=== PATIENT | female | born 1985 | race Caucasian/White ===

== ENCOUNTER 2019-11-29 10:41 | Outpatient (RCR) | payer BC, SELFPAY ==
[2019-11-29] MEDS: RHO(D) IMMUNE GLOBULIN 300 MCG SYRINGE IM (15:25)
== END 2020-02-25 07:28 | disposition home or self-care (01) ==
LOC: ANHLAB 10:41
PROVIDERS: Visit Provider Obstetrics & Gynecology
DX: Z29.13 Encounter for prophylactic Rho(D) immune globulin (principal); O36.0990 Maternal care for other rhesus isoimmunization, unspecified trimester, not applicable or unspecified; Z3A.00 Weeks of gestation of pregnancy not specified
CPT/HCPCS: 36415; 86900; 86901; 90384; 96372; J2790

== ENCOUNTER 2020-02-16 13:42 | Outpatient (RCR) | payer BC, SELFPAY ==
--- NOTE | ~2020-02-16 | US_ITS ---
EXAMINATION: US OB follow up w [facility] DATE: 02/16/2020 15:01 INDICATION: Postdates. TECHNIQUE: Real-time pelvic ultrasound was performed. COMPARISON: None. FINDINGS: There is a single living fetus in vertex presentation. The placenta is anterior. heart rate is 154 beats per minute (bpm). The amniotic fluid index is 10.3 cm, which is normal. The following biometric data were obtained: Biparietal diameter (BPD): 9.4 cm; head circumference (HC): 33.3 cm; abdominal circumference (AC): 35 .0 cm; femur length (FL): 7.3 cm. These measurements are concordant. Estimated weight is 3497 g +/- 525 g, which correlates with 30th percentile when 02/11/20 is use d as estimated date of delivery. As single measurements, these parameters are each equal to the following estimated gestational ages: BPD: 38 weeks 1 days. HC: 38 weeks 1 days. AC: 39 weeks 0 days. FL: 37 weeks 4 days. estimated gestational age based solely on measurements from this exam is 38 weeks 2 days +/- 2 weeks 5 days. Biophysical profile performed by the technologist: breathing (30 sec sustained breathing in 30 minutes): 2 out of 2 movement (3 gross body movements in 30 minutes): 2 out of 2 tone (one episode of umipbyc-svatwpfsb-olcseco limb movement): 2 out of 2 Amniotic fluid pocket (2 cm): 2 out of 2 Total score: 8 out of 8 IMPRESSION: 1. Single living fetus in vertex presentation. 2. Estimated weight is 3497 g +/- 525 g, which correlates with 30th percentile when 02/11/20 is used as estimated date of delivery. 3. Biophysical profile 8 out of 8. Reviewed, dictated and finalized at location A. IMPRESSION: 1. Single living fetus in vertex presentation. 2. Estimated weight is 3497 g +/- 525 g, which correlates with 30th perc entile when 6/12/20 is used as estimated date of delivery. 3. Biophysical profile 8 out of 8.
[2020-02-16 15:15] VITALS: BP 130/81; PULSE 86
== END 2020-02-25 07:28 | disposition home or self-care (01) ==
LOC: ANHOBOP 13:42
PROVIDERS: Visit Provider Obstetrics & Gynecology
DX: O48.0 Post-term pregnancy (principal); Z3A.40 40 weeks gestation of pregnancy
CPT/HCPCS: 59025; 76816; 76819

== ENCOUNTER 2020-02-16 21:40 | Inpatient (IN) | payer BC, SELFPAY ==
[2020-02-16 22:16] VITALS: BP 118/73; PULSE 108
[2020-02-16 22:20] VITALS: BMI 35.5
--- NOTE | 2020-02-16 22:21 | LDADM ---
This patient, Candis Sue, was admitted to Labor/Delivery/Recovery 107 on 02/16/20 at 21:40. Plans for labor, pain management and were discussed with patient. Patient/family oriented to hospital policies and general routines including ID bracelet, bed and alarms, visiting hours, pain management, procedures, bathroom and other care routines, personal items, smoking policy, room service/diet and guest tray routines, security routines, and visiting hours. Patient/Family are encouraged to report perceived risks to care and to ask questions if they do not understand what they are told or what they should do. See OBIX for further documentation.
[2020-02-16 22:30] VITALS: TEMP 36.6
[2020-02-16 22:31] VITALS: BP 138/84; PULSE 90
[2020-02-16 22:39] LABS: Basophils Absolute Auto 0.1 K/mm3 (0.0-0.1); Basophils Percent Auto 0.5 % (0.2-1.2); Eosinophils Percent Auto 0.3 % (0-4.4); Hematocrit 38.2 % (37.0-47.0); Hemoglobin 12.9 g/dL (12.0-15.0); Immature Granulocyte Absolute 0.19 K/mm3 (0.00-0.031); Immature Platelet Fraction Pct 12.8 % (0.9-11.2); Lymphocytes Absolute Auto 1.83 K/mm3 (0.9-3.2); Lymphocytes Percent Auto 19.2 % (18.3-44.2); Mean Corpuscular HGB Conc 33.8 g/dl (32-36); Mean Corpuscular Hemoglobin 30.9 pg (26-34); Mean Corpuscular Volume 91.6 fl (80-100); Mean Platelet Volume 13.2 fl (7.4-10.4); Monocytes Absolute Auto 0.6 K/mm3 (0.1-0.6); Monocytes Percent Auto 6.3 % (2.6-8.5); Neutrophils Absolute Auto 6.8 K/mm3 (1.3-6.7); Neutrophils Percent Auto 71.7 % (45.5-73.1); Nucleated Red Blood Cells Perc 0.3 % (0.0-0.2); Platelet Count Result 131 k/mm3 (150-375); Red Blood Count 4.17 M/mm3 (4.2-5.4); Red Cell Distribution Width 15.2 % (11.5-14.5); White Blood Count 9.5 K/mm3 (4.5-10.0)
[2020-02-16 22:45] LABS: Alanine Aminotransferase 23 U/L (4-35); Albumin Level 3.6 g/dL (3.5-5.1); Alkaline Phosphatase 315 U/L (38-126); Aspartate Amino Transferase 32 U/L (14-36); Bilirubin,Total 0.2 mg/dL (0.2-1.3); Blood Urea Nitrogen 12 mg/dL (7-17); Calcium 8.8 mg/dL (8.4-10.2); Carbon Dioxide 19 mmol/L (22-30); Chloride 106 mmol/L (98-107); Estimated CRCL calculation 162 ml/min; Estimated Glomerular Filt Rate > 60; Glucose 144 mg/dL (65-105); Potassium 3.7 mmol/L (3.4-5.0); Sodium 133 mmol/L (137-145)
[2020-02-16 22:55] LABS: Uric Acid 5.6 mg/dL (2.5-7.5)
[2020-02-17] VITALS (19 sets, daily range): BP systolic 120–146; BP diastolic 75–116; PULSE 65–91; RESP 16–18; TEMP 36.3–36.8; O2SAT 97
[2020-02-17] MEDS: OXYTOCIN 30 UNITS/NS 500 ML 30 UNITS/500 ML BAG 999 UNITS IV CONT (03:55)
--- NOTE | 2020-02-17 04:16 | WPDOBADMIT ---
Obstetrics - Admit Note Admission Note: record reviewed. Additions to the history and/or subsequent changes in the physical findings follow. 34 y/o at 40 6/7 weeks gestation who presented after a gush of fluid. SROM diagnosed. Feeling contractions. uncomplicated. GBS neg. Rh neg. AVSS NST reactive TOCO: contractions every 2-3 min ABD soft, nontender, gravid, vertex EXT nontender Cervix 8cm / 90 / +1 A: IUP at term with SROM, labor. P: Anticipate .
--- NOTE | 2020-02-17 04:17 | PM.OBPRVD ---
OB - Delivery Note Procedure Delivery date: 02/17/20 Procedure: Delivery monitor: external FHT and external uterine Route of delivery: Laceration description: Perineal - 2nd Degree Delivery repair: vicryl (3-0) Specimen: Yes (cord blood) Estimated blood loss (mL): 85 Anesthesia type: Local (1% lidocaine) Disposition: PACU Complications: None Narrative: 34 y/o at 40 6/7 weeks gestation who presented to the hospital after a gush of fluid. SROM was diagnosed. Her labor progressed and her cervix dilated completely. She pushed with good effort and delivered the 's head to the perineum, followed by the body. The nose and mouth were bulb suctioned. After a delay, the cord was clamped and cut. The infant was handed off the field. Cord blood was collected. The placenta delivered spontaneously and was grossly normal in appearance. The usual 3 vessel cord was noted. A second degree midline perineal laceration was sustained. This was infiltrated with 12 mL 1% lidocaine and reapproximated using 3 0 Vicryl in the usual layered fashion. Excellent hemostasis resulted as did excellent reapproximation of the normal anatomy. Needle and instrument counts were correct. The patient was taken to recovery room in stable condition. The went to the nursery in stable condition. I was present and scrubbed for the entire delivery. Baby Date of : 02/17/20 Time of : 03:51 Weeks of gestation at delivery: 40 gender: Male Weight (pounds): 7 Weight (ounces): 9 presentation: vertex position: Left Occiput Anterior Placenta delivery description: Spontaneous and Normal Configuration cord vessel description: 3 Vessels, Nuchal Cord and True Knot score one minute: 9 score five minutes: 9
--- NOTE | 2020-02-17 04:19 | PM.OBDSVD ---
DS: Admitting Diagnosis Admitting Diagnosis Admitting Diagnosis: Labor at term DS: Discharge Diagnosis Discharge Diagnosis (1) (normal spontaneous vaginal delivery): Code(s): O80 - Encounter for full-term uncomplicated delivery Status: Acute OB - DS: Summary OB Procedures : None OB Procedures Intrapartum: Spontaneous Vag Delivery OB Procedures: : None DS: Data Data Completed and Pending Labs on day of discharge: Labs from last 24 hours 02/16/20 02/16/20 02/16/20 22:27 22:27 22:27 WBC RBC Hgb Hct MCV MCH MCHC RDW Plt Count MPV Immature Gran % (Auto) Neut % (Auto) Lymph % (Auto) Riley % (Auto) Eos % (Auto) Baso % (Auto) Lymph # (Auto) Riley # (Auto) Eos # (Auto) Baso # (Auto) Abs Immat Gran (auto) Absolute Neuts (auto) Absolute Nucleated RBC Nucleated RBC % % Immature Plt Fraction Sodium 133 L Potassium 3.7 Chloride 106 Carbon Dioxide 19 L BUN 12 Creatinine 0.50 L Estim Creat Clear Calc 162 Estimated GFR > 60 Glucose 144 H Uric Acid Calcium 8.8 Total Bilirubin 0.2 AST 32 ALT 23 Alkaline Phosphatase 315 H Total Protein 7.0 Albumin 3.6 RPR Pending Blood Type O Negative Antibody Screen Negative 02/16/20 02/16/20 22:27 22:27 WBC 9.5 RBC 4.17 L Hgb 12.9 Hct 38.2 MCV 91.6 MCH 30.9 MCHC 33.8 RDW 15.2 H Plt Count 131 L MPV 13.2 H Immature Gran % (Auto) 2.0 H Neut % (Auto) 71.7 Lymph % (Auto) 19.2 Riley % (Auto) 6.3 Eos % (Auto) 0.3 Baso % (Auto) 0.5 Lymph # (Auto) 1.83 Riley # (Auto) 0.6 Eos # (Auto) 0.0 Baso # (Auto) 0.1 Abs Immat Gran (auto) 0.19 H Absolute Neuts (auto) 6.8 H Absolute Nucleated RBC 0.0 Nucleated RBC % 0.3 H % Immature Plt Fraction 12.8 H Sodium Potassium Chloride Carbon Dioxide BUN Creatinine Estim Creat Clear Calc Estimated GFR Glucose Uric Acid 5.6 Calcium Total Bilirubin AST ALT Alkaline Phosphatase Total Protein Albumin RPR Blood Type Antibody Screen Discharge Plan Discharge Attending physician on discharge: Adrian Perez Discharging Clinician: Adrian Perez Patient Disposition: Home, Self-Care Activity: pelvic rest Diet: regular Discharge Instructions: Call or return if temperature above 100.4? F, increased abdominal pain, increased vaginal bleeding or any new problems. Stand Alone Forms: General Discharge Information Follow-up/Referrals: Adrian Perez MD [Physician] - (6 weeks) Discharge Medications: New ibuprofen 600 mg tablet 600 mg PO Q6H PRN (Reason: cramps) Qty: 30 RF: 0 Continued PNV [id number]-ferrous fumarate-FA [] 28 mg iron- 800 mcg Tablet 1 tablet PO DAILY RF: 0 Date of admission: 02/16/20 21:40 Primary Care Provider: PHYSICIAN,ASSET MANAGEMENT COORDINATOR Admitting Provider: Adrian Perez Attending physician on admission: Adrian Perez
[2020-02-17] MEDS: OXYTOCIN 30 UNITS/NS 500 ML 30 UNITS/500 ML BAG 125 UNITS IV CONT (04:45)
[2020-02-17] MEDS: IBUPROFEN 600 MG TABLET PO ×3 (05:01→19:20)
[2020-02-17] MEDS: LANOLIN (LANSINOH) 7.5 GM CREAM 1 APPLIC TOPICAL (05:01)
[2020-02-17] MEDS: BENZOCAINE 20% AER SPR (*SP) 56 GM CAN 1 SPRAY TOPICAL (05:01)
[2020-02-17] MEDS: WITCH HAZEL 40 PADS 1 PAD TOPICAL (05:01)
[2020-02-17 07:43] LABS: Rapid Plasma Reagin Non-Reactive (NonReactive)
--- NOTE | 2020-02-17 08:15 | PC.NURSE ---
Mother called out for assist with feeding. Consulted with patient, mother reports was eager for first feeding, now sleepy. Reviewed feeding cues, frequencies, duration of feedings, feeding elimination flow sheet, and signs of adequate intake. Demonstrated stimulation techniques to wake infant for feeding. Assisted with infant to breast. Reviewed positioning/alignment in cross cradle, holding breast in U hold and guided asymmetrical latch on. Discussed rational for each. Infant was able to latch correctly. nursed eagerly, with steady draws and frequent swallowing noted. Reviewed signs of a correct latch, effective nursing and suck swallow ratio. was able to maintain latch without discomfort to mother. Nipple care reviewed. Suggested to stimulate to keep infant awake and nursing effectively for increased intake and maintaining deep latch. Instructed mother to call out for RN assistance if she is unable to latch infant for feeding or she has discomfort with nursing. Instructed feeding should be initiated three hours from start of last feeding or if feeding cues are noted before. Mother voiced understanding of information shared.
--- NOTE | 2020-02-17 10:11 | PC.NURSE ---
Patient transferred to post room #0708 via wheelchair. Support person present. Oriented to unit, room, information board, rooming in, admission packet and security measures. Patient verbalizes understanding.
[2020-02-17] MEDS: MULTIVIT/MIN/PREN/FOL AC/IRON TABLET 1 TAB PO (12:52)
--- NOTE | 2020-02-17 15:30 | PC.NURSE ---
Mother called out for assist with . Mother requested the Latch assist and nipple shells for tender nipples. Mother states she is slightly tender now, she had cracking and bleeding with fist child and wants to prevent any discomfort possible. Both nipples are slightly reddened, mother has vary fair skin and pink areola and nipples. Discussed the importance of a deep latch and maintaining deep latch. Assisted with infant to breast. Reviewed positioning/alignment in cross cradle, holding breast in U hold and guided asymmetrical latch on. Discussed the rational for each. Infant was able to latch correctly. nursed eagerly, with steady draws and frequent swallowing noted. Reviewed signs of a correct latch, effective nursing and suck swallow ratio. Infant was able to maintain latch without discomfort to mother. Nipple care reviewed. Suggested mother stimulate to keep infant awake and nursing effectively for increased intake and to assist maintaining deep latch. Instructed mother to call out for RN assistance if she is unable to latch for feeding or she has discomfort with nursing. Instructed feeding should be initiated three hours from start of last feeding or if feeding cues are noted before. Mother voiced understanding of information shared.
[2020-02-17] MEDS: DOCUSATE SODIUM 100 MG CAPSULE PO (16:14)
[2020-02-18] MEDS: IBUPROFEN 600 MG TABLET PO (05:50)
[2020-02-18 06:03] LABS: Hematocrit 34.6 % (37.0-47.0); Hemoglobin 11.7 g/dL (12.0-15.0)
[2020-02-18] MEDS: MULTIVIT/MIN/PREN/FOL AC/IRON TABLET 1 TAB PO (07:30)
[2020-02-18] MEDS: DOCUSATE SODIUM 100 MG CAPSULE PO (07:30)
[2020-02-18 07:50] VITALS: BP 148/90; PULSE 84; RESP 16; TEMP 36.5; O2SAT 99
--- NOTE | 2020-02-18 09:17 | PC.NURSE ---
Patient viewed the discharge video Mother & Baby Care, The First Two Weeks . Patient was given the opportunity and encouraged to ask questions. Patient verbalized understanding of information shared and has been given the mother/baby guide for home reference.
--- NOTE | 2020-02-18 09:30 | PC.NURSE ---
Consult with pt., mother is now pumping due to tranfer. Reviewed instructions on breast pump care and usage, pumping schedule, nipple care, and collection and storage of breast milk. Encouraged pwqy-my-eofs, breast massage and manual expression to stimulate supply. Assessed patient for correct flange size, placement and draw. Patient verbalizes and demonstrates understanding of instructions. Reviewed transition to breast milk, signs of adequate intake, and engorgement/relief. Instructed to call ICP if intake/output less than required. Reviewed regular medications mother is taking. Information provided per Zayra. Reviewed community resources on the [employer] website and in the Mom/Baby guide. Information on outpatient services provided. Mother has no further questions at this time.
[2020-02-21 10:40] VITALS: BP 132/82; PULSE 91; RESP 16; TEMP 37; O2SAT 99
== END 2020-02-18 10:13 | disposition home or self-care (01) | DRG 807 ==
LOC: ANHLDR 02-17 04:20 → ANHOB2 02-17 07:19
PROVIDERS: Admitting Provider Obstetrics & Gynecology; Visit Provider Obstetrics & Gynecology
DX: O36.0930 Maternal care for other rhesus isoimmunization, third trimester, not applicable or unspecified (principal); Z37.0 Single live birth; Z3A.40 40 weeks gestation of pregnancy; O70.1 Second degree perineal laceration during delivery; O69.2XX0 Labor and delivery complicated by other cord entanglement, with compression, not applicable or unspecified
CPT/HCPCS: 36415; 80053; 84112; 84550; 85014; 85018; 85025; 85055; 86592; 86850; 86900; 86901; A9270; J2590

== ENCOUNTER 2025-04-21 10:24 | Emergency (ER) | payer BC, SELFPAY ==
[2025-04-21 10:40] VITALS: BP 111/74; PULSE 70; RESP 16; TEMP 36.6; O2SAT 100
--- NOTE | 2025-04-21 10:50 | ED.URI ---
HPI - URI/Sore Throat General Chief Complaint: Upper Respiratory Infection Stated Complaint: Strep Test Time Seen by Provider: 04/21/25 10:44 Source: patient and RN notes reviewed Mode of arrival: ambulatory Limitations: no limitations History of Present Illness HPI Narrative: Patient presents today complaining of 2-3 day history of nasal congestion and sore throat. Denies fever, shortness of breath, cough, or any additional symptoms. She has tried DayQuil with mild improvement and currently rates her pain 3/10. Reports multiple sick coworkers, and child with runny nose at home. Related Data Home Medications ?Medication ?Instructions ?Recorded ?Confirmed ?Last Taken ?Type No Home Medications 04/21/25 04/21/25 Unknown History Allergies Allergy/AdvReac Type Severity Reaction Status Date / Time No Known Allergies Allergy Verified 04/21/25 10:38 [facility] Family History Family History Father Hx of CABG Diabetes mellitus Social History Social History Smoking status: Never smoker Substance use: never Spiritual care concerns: No Comments At time of signature, I have reviewed and agree with nursing past medical, surgical, social and family history unless otherwise noted. Please see nursing chart for further information. There is no relevant family history pertinent to the presenting complaint Exam Narrative: GENERAL: Well-appearing, well-nourished, and in no acute distress. HEAD: Normocephalic, atraumatic. EYES: EOMI. No redness or drainage. Conjunctivae normal. ENT: Mucous membranes pink and moist. Nares congested. No rhinorrhea. TMs normal bilaterally. Throat mildly erythematous without edema or exudate. Moderate amount of postnasal drainage. Uvula midline. NECK: Normal AROM. Supple. No lymphadenopathy. CHEST: No respiratory distress. Clear to auscultation. HEART: Regular rate and rhythm. No murmur appreciated. EXTREMITIES: Normal range of motion. No edema. SKIN: Warm, dry, no rash. Capillary refill normal. Normal skin turgor. NEURO: No focal deficits. Alert and oriented x3. Gait steady. PSYCH: Normal affect. No signs of depression or anxiety. Course Course Level of Care: Express Care Visit Vital Signs Vital signs: Vital Signs Temperature 97.8 F 04/21/25 10:40 Pulse Rate 70 04/21/25 10:40 Respiratory Rate 16 04/21/25 10:40 Blood Pressure 111/74 04/21/25 10:40 Pulse Oximetry 100 04/21/25 10:40 Temperature 97.8 F 04/21/25 10:40 Pulse Rate 70 04/21/25 10:40 Respiratory Rate 16 04/21/25 10:40 Blood Pressure 111/74 04/21/25 10:40 Pulse Oximetry 100 04/21/25 10:40 Reviewed MDM - URI/Sore Throat MDM Narrative Medical decision making narrative: 39-year-old female patient presents today with a 2-3 day history of nasal congestion and sore throat and denies any additional symptoms. Has been taking DayQuil with some mild relief and currently rates her pain 3/10. Reports some sick contacts with coworkers and 1 child at home. Rapid strep negative. Culture pending. Upon exam, patient has a mildly erythematous throat with some moderate postnasal drainage as well as some mildly congested nasal passages. Symptoms likely viral in etiology. Discussed [id number] medication use and duration of illness. No prescription medications indicated at this time. Anticipatory guidance given. Vital signs stable. Differential Diagnosis Differential diagnosis: Likely upper respiratory infection, sinusitis, viral infection, pharyngitis and other (Strep throat) Lab Data Attestation: I reviewed the patient's lab results. Labs: Lab Results 04/21/25 Range/Units 10:50 POC Grp A Strep Screen Negative (Negative) Critical Care Time Critical Care Time Critical Care Time: No Discharge Plan Discharge Clinical Impression: Upper respiratory infection Qualifiers: URI type: unspecified URI Qualified Code(s): J06.9 - Acute upper respiratory infection, unspecified Patient Disposition: Home Condition: Stable Instructions: Upper Respiratory Infection (DC) Additional Instructions: Your rapid strep swab was negative today at [facility]. You will be notified in a few days if the culture comes back positive for strep, and appropriate antibiotics will be called in for you at that time. Your symptoms are likely due to a viral illness, which is not treated with antibiotics. Viral symptoms can be present for up to 7-10 days. Take Tylenol or ibuprofen for fever or pain. Rest and stay hydrated. Follow up with your PCP in 7 days if symptoms are not improving. Go to the ER immediately if you any difficulty breathing or swallowing. Patient Language: Tanzanian Prescriptions: No Action No Home Medications Follow-up/Referrals: PHYSICIAN,OSTEOLOGY TEACHER [Primary Care Provider, Internal Medicine] Stand Alone Forms: Work/School Release IP Time of Disposition: 10:54
[2025-04-21 10:52] LABS: EDSTREPNEGPOS1 Negative (Negative)
== END 2025-04-21 11:01 | disposition home or self-care (01) ==
PROVIDERS: Emergency Provider Nurse Practitioner
DX: J06.9 Acute upper respiratory infection, unspecified (principal)
CPT/HCPCS: 87081; 87880; 99213; G0463